=== PATIENT | male | born 1985 | race Caucasian/White ===

== ENCOUNTER 2020-12-08 13:18 | Emergency (ER) | payer BC, SELFPAY ==
[2020-12-08 13:20] VITALS: BP 122/69; PULSE 72; RESP 16; TEMP 35.9; O2SAT 98; BMI 30.8
--- NOTE | 2020-12-08 14:09 | ED.VIS.BACK ---
HPI History of Present Illness Chief Complaint: Back Informant: patient Onset/Context/Timing Onset: Yesterday Narrative Narrative: Patient is a 35-year-old male with history of back pain presenting with back pain. Patient states it started yesterday when he woke up. Has been constant in nature. He states the pain is in his middle right back and radiates around. He denies any radiation to his groin. Has associated urinary symptoms. He notes he has not gone pee today which is normal for him. Patient states the pain is better when he leans forward and worse when he straightens up. Patient was at work and was told to come in to make sure his kidneys were okay. He denies any history of kidney stones. He denies any paresthesias in his groin region/saddle anesthesia. Denies any incontinence. Denies any weakness or pain going down to his legs. Patient denies any fever chills. Did not take anything for pain prior to arrival. PFSH PFSH Home Medications No Known/Unobtainable [No Known Home Medications] 06/22/17 [History Last Taken Unknown] cyclobenzaprine 10 mg PO TID PRN #14 tab 12/08/20 [Rx Last Taken Unknown] hydrocodone-acetaminophen 1 tab PO Q6H PRN 3 Days #12 tab 12/08/20 [Rx Last Taken Unknown] ibuprofen 600 mg PO Q6H PRN PRN #20 tab 12/08/20 [Rx Last Taken Unknown] Allergy/AdvReac Type Severity Reaction Status Date / Time No Known Allergies Allergy Verified 12/08/20 13:22 Social History Smoking Status: Current every day smoker [facility] ED Constitutional Constitutional ED: Reports frequent falls; Denies fever(s) Eyes Eyes: Denies change in vision or eye pain ENT ENT ED: Denies dental pain, mouth lesions or nasal trauma Cardiovascular Cardiovascular: Denies chest pain or syncope Respiratory/Chest Respiratory/Chest: Denies cough or dyspnea Gastrointestinal Gastrointestinal: Denies abdominal pain or nausea Genitourinary Genitourinary ED: Denies dysuria or hematuria Musculoskeletal Musculoskeletal: Reports back pain; Denies arthralgias, myalgias or neck pain Integumentary Denies Abrasions or wounds Neurologic Neurologic: Denies headache(s), paresthesias or weakness Psychiatric Psychiatric: Denies anxiety or depression Hematologic/Lymphatic Hematologic/Lymphatic: Denies easy bleeding or easy bruising EXAM Physical Exam Const Vital Signs: 12/08/20 13:20 Temperature 96.6 F L Temperature Source Temporal Pulse Rate 72 Respiratory Rate 16 Blood Pressure 122/69 H Blood Pressure Mean 86 Pulse Ox 98 Oxygen Delivery Method Room Air Positive alert and oriented x3 HEENT Reports normocephalic and moist mucous membranes normocephalic Mouth ED: Yes moist mucous membranes normal Eyes PERRL and EOMs intact bilaterally General Eye ED: Yes normal appearance of both eyes Pupil: PERRL Neck supple and no JVD Lymph Lymphatic: no lymphadenopathy noted Chest Wall inspection of chest normal and palpation of chest normal Resp normal respiratory effort and normal air movement Cardio regular rate and regular rhythm Cardio Narrative: Equal pulses of the bilateral lower extremities Peripheral Pulses: pulses 2+ throughout GI non-tender and non-distended Back/Spine no CVA tenderness, normal to inspection and no thoracic nor lumbar tenderness Back/Spine Narrative: Patient points to his right flank/lower thoracic area but pain is not reproducible on exam General Back: Negative for CVA tenderness Thoracic Spine / Upper Back: Negative for paraspinal muscle tenderness Extremity normal to inspection and full ROM Neuro oriented x3, moves all extremities and no focal motor deficits Sensorium / Orientation: alert Psych mental status grossly normal and thought process normal Skin no rashes or lesions noted and no petechiae Image ED - Body Diagram Man: 1. MDM MDM MDM Narrative Medical decision making narrative: Patient valuated for back pain. He appears nontoxic but uncomfortable. The pain is in his right CVA region however it is not really reproducible except with his own intrinsic movements. Urinalysis obtained because of the location of pain and it does show 0-5 red blood cells and 2+ bacteria. Patient has 5 ketones in his urine however admits he has not eaten or drinking anything today. Is a because of the hematuria this does increase my suspicion for kidney stone as the cause of his pain so a kidney stone work-up is initiated. Patient did not have an improvement of his pain with ibuprofen in the ER. He has been given Zofran and 6 mg IV morphine. Patient has mild improvement of his symptoms with still a lot of pain with movement. Lab work is largely unremarkable and CT does not show any acute process to explain his pain. He does have some fluid-filled loops of bowel on CT however patient is not having any GI symptoms and I do not think he has enteritis. Urine culture sent given that he does have some bacteria in his urine however I have a lower suspicion for UTI especially as he is no white blood cells. I will not treat at this time. Patient is redosed with morphine and Flexeril in the ER. I suspect his pain is likely muscle skeletal. I do not think he has pain out of proportion. At this time I do not think he is at dissection or infarct. He is not have findings consistent with cauda equina syndrome. He is instructed to follow-up with his primary care doctor if his pain is not improving or return to the emergency room. He is counseled that if the pain persist he might require further imaging including an MRI or physical therapy through his PCP office. Patient verbalized agreement nursing of this plan. Discharged home in stable condition. Lab Data Labs: Laboratory Results - last 24 hr 12/08/20 12/08/20 12/08/20 14:25 15:15 15:15 WBC 8.4 RBC 5.20 Hgb 17.6 H Hct 51.7 MCV 99.4 H MCH 33.8 H MCHC 34.0 RDW Std Deviation 43.4 RDW Coeff of Akira 11.8 Plt Count 265 MPV 9.9 Immature Gran % (Auto) 0.400 Neut % (Auto) 75.6 H Lymph % (Auto) 11.8 L [place] % (Auto) 10.0 Eos % (Auto) 1.7 Baso % (Auto) 0.5 Absolute Neuts (auto) 6.4 Absolute Lymphs (auto) 0.99 Nucleated RBC % 0 Sodium 137 Potassium 4.6 Chloride 102 Carbon Dioxide 34.0 H Anion Gap 1 L BUN 13 Creatinine 1.11 Estim Creat Clear Calc 110.05 Est GFR (MDRD) Af Amer 98 Est GFR (MDRD) Non-Af 81 BUN/Creatinine Ratio 11.7 Glucose 97 Calcium 9.2 Urine Color Yellow Urine Clarity Clear Urine pH 6.0 Ur Specific [place] 1.020 Urine Protein 15 H Urine Glucose (UA) Normal Urine Ketones 5 H Urine Occult Blood 50 H Urine Nitrite Negative Urine Bilirubin 1 H Urine Urobilinogen 1 H Ur Leukocyte Esterase 25 H Urine RBC 0-5 SEEN Urine WBC 0 SEEN Ur Squamous Epith Cells 0 SEEN Urine Bacteria 2+ Urine Mucus 1+ Radiography Diagnostic Testing: Radiology Impression Abdomen/Pelvis CT 12/08/20 15:09 IMPRESSION: Fluid-filled loops of small bowel which may represent very mild enteritis. There is no obstruction. No other acute abnormalities are identified. Individualized dose optimization techniques were used for this CT. at 1550 Reported and signed by: Michelet Atkins MD Electronically Signed: Michelet Atkins MD at 15:49 EDT Tel , Service support , Treatment and Re-Evaluation Comments:: Motrin?no improvement IV morphine and Zofran?some improvement Work-up negative, retreated with morphine and Flexeril will discharge home with pain medication and outpatient follow-up Discharge Plan Triage Chief Complaint: Back ED Provider: Michelle Miller Dx/Rx/DC Orders Clinical Impression: Right-sided thoracic back pain Instructions: ED Back Pain (Acute or Chronic), ED Flank Pain, Uncertain Cause Prescriptions: New hydrocodone-acetaminophen 5-325 mg tablet 1 tab PO Q6H PRN (Reason: pain) 3 Days Qty: 12 RF: 0 cyclobenzaprine 10 mg tablet 10 mg PO TID PRN (Reason: muscle spasm) Qty: 14 RF: 0 ibuprofen 600 mg tablet 600 mg PO Q6H PRN PRN (Reason: Pain Score 1-10/10) Qty: 20 RF: 0 No Action No Known Home Medications RF: 0 Primary Care Provider: José Miguel Guaman III Referrals: José Miguel Guaman III, MD [Primary Care Provider] - Disposition Disposition: Home, self care
[2020-12-08] MEDS: Ibuprofen 600 MG Tablet PO (14:22)
[2020-12-08 14:34] LABS: Color, Urine Yellow (Yellow); Glucose, Dipstick Normal (Normal); Ketone-Dipstick 5 mg/dl (Negative); Leukocyte Esterase-Dipstick 25 /ul (Negative); Nitrite-Dipstick Negative (Negative); Occult Blood-Urine 50 /ul (Negative); Protein-Dipstick 15 mg/dl (Negative); Squamous Epithelial Cells - UA 0 SEEN /hpf (0-5); Urine Clarity Clear (Clear); Urine Urobilinogen 1 mg/dl (Normal); White Blood Cells 0 SEEN /hpf (0-5)
[2020-12-08 14:41] LABS: Urine Bilirubin Dipstick 1 mg/dL (Negative)
[2020-12-08 14:42] LABS: Bacteria 2+ /hpf (None Seen); Mucous, Urine 1+ /hpf (<or=2+); Red Blood Cells-Urine 0-5 SEEN /hpf (0-5)
--- NOTE | 2020-12-08 15:09 | CT_ITS ---
EXAM: CT ABDOMEN AND PELVIS WITHOUT INTRAVENOUS CONTRAST : 1985 CLINICAL INDICATION: Kidney Stone TECHNIQUE: Helically acquired images were obtained of the abdomen and pelvis without intravenous contrast. This CT exam was performed using one or more of the following dose reduction techniques: automated exposure control, adjustment of the mA and/or kV according to patient size, and/or use of iterative reconstruction technique. This report was created using [employer] report generation technology. COMPARISON: None. FINDINGS: LOWER THORAX: Unremarkable. Lung bases are clear. No cardiomegaly. No significant pericardial effusion. ABDOMEN: LIVER: Unremarkable. Homogeneous. GALLBLADDER AND BILE DUCTS: Unremarkable. No calcified gallstones. No gallbladder distention or wall edema. No intra- or extrahepatic biliary ductal dilation. PANCREAS: Unremarkable. No focal cystic mass. SPLEEN: Unremarkable. Normal size without focal cystic or solid mass. ADRENALS: Unremarkable. No nodules. KIDNEYS AND URETERS: Unremarkable. Normal renal size and position. No hydronephrosis. STOMACH AND BOWEL: There are multiple fluid-filled loops of small bowel possibly representing mild enteritis. There is no obstruction or free air. PELVIS: APPENDIX: No evidence of acute appendicitis. BLADDER: Unremarkable. REPRODUCTIVE: Unremarkable as visualized. No mass. ABDOMEN and PELVIS: INTRAPERITONEAL SPACE: See above. BONES/JOINTS: Unremarkable. No suspicious lytic or blastic abnormality. SOFT TISSUES: Unremarkable. No discrete abdominal or pelvic wall hernia. VASCULATURE: Unremarkable. Abdominal aorta is non-dilated. LYMPH NODES: Unremarkable. No enlarged lymph nodes. CT/Abdomen/Pelvis without Cont IMPRESSION: Fluid-filled loops of small bowel which may represent very mild enteritis. There is no obstruction. No other acute abnormalities are identified. Individualized dose optimization techniques were used for this CT. at 1550 Reported and signed by: Michelet Atkins MD Electronically Signed: Michelet Atkins MD at 15:49 EDT Tel , Service support ,
[2020-12-08] MEDS: Morphine 4 MG/ML Syringe 6 MG IV (15:26)
[2020-12-08] MEDS: Ondansetron 4 MG/2 ML Vial IV (15:26)
[2020-12-08 15:30] LABS: Absolute Lymphocyte Count 0.99 X10^3/uL (0.83-4.51); Absolute Neutrophil Count 6.4 X10^3/uL (2.0-7.7); Basophil# 0.04 X10^3/uL; Basophil% 0.5 % (0-1); Eosinophil# 0.14 X10^3/uL; Eosinophils% 1.7 % (0-5); Hematocrit 51.7 % (40-54); Hemoglobin 17.6 g/dL (13.0-16.5); Lymphocyte # 0.99 X10^3/ul (0.83-4.51); Lymphocyte % 11.8 % (19-41); Mean Corpuscular Hgb 33.8 pg (27.0-32.0); Mean Corpuscular Volume 99.4 fL (80-94); Mean Platelet Vol. 9.9 fl (6.2-12.0); Monocyte# 0.84 X10^3/uL; NRBC Flagged by Analyzer 0 % (0-5); Neutrophil # 6.38 X10^3/uL (2.7-7.7); Neutrophil % 75.6 % (47-70); Platelet Count 265 K/mm3 (150-450); RBC Distribution Width CV 11.8 % (11.6-14.6); RBC Distribution Width SD 43.4 fl (35.1-43.9); White Blood Count 8.4 K/mm3 (4.4-11.0)
[2020-12-08 15:42] LABS: Anion Gap 1 (5-15); BUN 13 mg/dL (7-18); BUN/Creat Ratio 11.7 RATIO (10-20); Calcium,Total 9.2 mg/dL (8.5-10.1); Chloride 102 mmol/L (98-107); Creatinine, Serum 1.11 mg/dL (0.70-1.30); EST Glomerular Filtration Rate 81 mL/min (>60); Est Glom Filt Rate - Afr Amer 98 mL/min (>60); Estimated Creatinine Clearance 110.05 ml/min; Glucose 97 mg/dL (74-106); Potassium 4.6 mmol/L (3.5-5.1); Sodium Level 137 mmol/L (136-145)
[2020-12-08] MEDS: Morphine 4 MG/ML Syringe IV (16:29)
[2020-12-08] MEDS: cycloBENZAPRine HCl 10 MG Tablet PO (16:29)
[2020-12-08 17:05] VITALS: BP 130/77; PULSE 61; RESP 16; O2SAT 96
== END 2020-12-08 17:07 | disposition home or self-care (01) ==
PROVIDERS: Emergency Provider Emergency Medicine; PCP Family Medicine
DX: M54.6 Pain in thoracic spine (principal); F17.200 Nicotine dependence, unspecified, uncomplicated
CPT/HCPCS: 74176; 80048; 81001; 85025; 87086; 87088; 96374; 96375; 96376; 99284; A4216; J2405